=== PATIENT | male | born 1990 | race Caucasian/White ===

== ENCOUNTER 2018-03-12 00:41 | Emergency (ER) | payer OTHER ==
[~2018-03-12] VITALS: Ht 175.3 cm; Wt 68.0 kg
[2018-03-12 00:54] VITALS: BP 140/79
[2018-03-12] MEDS ORDERED: IBUPROFEN 600 MG TABLET. PO ONE ×2 (01:10→01:15)
[2018-03-12] MEDS ORDERED: ORPH-16 PO (01:10)
[2018-03-12] MEDS ORDERED: ORPHENADRINE CITRATE 60 MG/2 ML VIAL. ONE (01:10)
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
[2018-03-12] MEDS ORDERED: ORPHENADRINE CITRATE 60 MG/2 ML VIAL. IM ONE (01:15)
== END 2018-03-12 01:19 | disposition home or self-care (01) ==
LOC: EDBD 00:41 → ER 00:41
DX: S16.1XXA Strain of muscle, fascia and tendon at neck level, initial encounter (principal); S80.01XA Contusion of right knee, initial encounter; R51 Headache; V49.59XA Passenger injured in collision with other motor vehicles in traffic accident, initial encounter; Y93.89 Activity, other specified; Y92.488 Other paved roadways as the place of occurrence of the external cause; Y99.8 Other external cause status
CPT/HCPCS: 96372; 99283; J2360